=== PATIENT | female | born 1950 | race African-American/Black ===

== ENCOUNTER 2023-11-01 11:35 | Emergency (ER) | payer MEDICAID, MEDICARE, OTHER ==
[~2023-11-01] VITALS: Ht 165.1 cm; Wt 70.0 kg
[2023-11-01 11:38] VITALS: O2SAT 96
[2023-11-01 12:02] LABS: BASOPHILS % 0.4 % (0.0-2.0); EOSINOPHILS % 0.5 % (0.0-5.0); HEMATOCRIT. 40.6 % (36.0-48.0); HEMOGLOBIN. 13.1 g/dL (12.0-16.0); MEAN CORPUSCULAR HEMOGLOBIN 26.3 pg (28.0-32.0); MEAN CORPUSCULAR HGB CONC 32.2 g/dL (31.0-37.0); MEAN CORPUSCULAR VOLUME 81.7 fL (81.0-99.0); MEAN PLATELET VOLUME 7.7 fl (7.4-10.4); MONOCYTES % 5.2 % (2.0-8.0); NEUTROPHILS % 67.9 % (40.0-76.0); PLATELET 247 x1000/uL (130-400); RED BLOOD CELL COUNT 4.97 mill/uL (4.2-5.4); RED CELL DISTRIBUTION WIDTH 14.3 % (11.6-14.6); WHITE BLOOD COUNT 8.8 x1000/uL (4.5-11.0)
[2023-11-01 12:11] LABS: CARBON DIOXIDE 28 mEq/L (21-32); CHLORIDE 106 mEq/L (98-107); POTASSIUM 3.6 mEq/L (3.5-5.1); SODIUM 140 mEq/L (136-145)
[2023-11-01 12:12] LABS: CALCIUM 9.4 mg/dL (8.7-10.4)
[2023-11-01 12:16] LABS: CREATININE 0.9 mg/dL (0.6-1.0)
[2023-11-01 12:17] LABS: GLUCOSE 113 mg/dL (70-105); UREA NITROGEN BLOOD 14 mg/dL (9-23)
[2023-11-01 12:21] LABS: T4 FREE 1.18 ng/dL (0.89-1.76)
[2023-11-01 12:22] LABS: THYROID STIMULATING HORMONE 2.03 uIU/mL (0.55-4.78)
[2023-11-01 12:23] LABS: TROPONIN I HIGH SENSITIVITY < 4 ng/L (3.0-34)
[2023-11-01 12:24] LABS: PHOSPHORUS 3.7 mg/dL (2.5-4.9)
[2023-11-01] MEDS: SODIUM CHLORIDE 0.9% 1,000 ML IV ONE (12:41)
[2023-11-01 13:02] LABS: D-DIMER 0.59 mg/L FEU (<0.50); PARTIAL THROMBOPLASTIN TIME 28.6 sec (23.4-31.0); PROTHROMBIN TIME 10.9 sec (9.6-11.0)
[2023-11-01] MEDS: ASPIRIN 81MG TABLET PO ONE (14:51)
[2023-11-01] MEDS: MAGNESIUM 1 G PREMIX 100 ML IV ONE (15:07)
[2023-11-01] MEDS ORDERED: CEFTRIAXONE 1GM/50ML 50 ML IV ONE (15:45)
[2023-11-01 16:55] LABS: CLARITY URINE CLEAR (CLEAR); COLOR URINE YELLOW (YELLOW); GLUCOSE URINE NEGATIVE (NEGATIVE); KETONES URINE NEGATIVE (NEGATIVE); LEUKOCYTE ESTERASE URINE NEGATIVE (NEGATIVE); NITRITE URINE NEGATIVE (NEGATIVE); OCCULT BLOOD URINE TRACE (NEGATIVE); PH URINE 6.5 (4.5-8.0); PROTEIN URINE NEGATIVE (NEGATIVE); SPECIFIC GRAVITY URINE 1.064 (1.005-1.030); UROBILINOGEN URINE 0.2 E.U./dL (0.2-1.0)
[2023-11-01 17:10] LABS: BACTERIA URINE TRACE; RBC URINE 0-2 /hpf (0-2); SQUAMOUS EPITHELIAL CELL URINE RARE /lpf (RARE/1+); WBC URINE 0-2 /hpf (0-2)
[2023-11-01 17:14] VITALS: BP 138/52; PULSE 85; RESP 17; TEMP 36.83628; O2SAT 96
[2023-11-02] MEDS ORDERED: IOHEXOL-350 100 ML BOTTLE ONE (09:47)
== END 2023-11-01 17:40 | disposition short-term general hospital (02) ==
LOC: ER 11:35
DX: R00.2 Palpitations (principal); R07.9 Chest pain, unspecified; R26.81 Unsteadiness on feet; Z88.2 Allergy status to sulfonamides; Z91.040 Latex allergy status; Z98.890 Other specified postprocedural states
CPT/HCPCS: 99285; 71275; 96365; 71045; 96361; 80048; 81003; 83880; 84439; 83735; 84100; 84443; 85025; 85379; 85610; 85730; 87086; 84484; 36415; 70450; 93005; J0696; J3475; J7030

== ENCOUNTER 2024-12-16 12:51 | Emergency (ER) | payer OTHER ==
[~2024-12-16] VITALS: Ht 160 cm; Wt 80.0 kg
[2024-12-16 13:00] VITALS: BP 142/70; PULSE 80; RESP 16; TEMP 36.4; O2SAT 97
[2024-12-16 14:39] LABS: CLARITY URINE CLEAR (CLEAR); COLOR URINE YELLOW (YELLOW); GLUCOSE URINE NEGATIVE (NEGATIVE); KETONES URINE NEGATIVE (NEGATIVE); LEUKOCYTE ESTERASE URINE NEGATIVE (NEGATIVE); NITRITE URINE NEGATIVE (NEGATIVE); OCCULT BLOOD URINE 2+ (NEGATIVE); PH URINE 5.5 (4.5-8.0); PROTEIN URINE NEGATIVE (NEGATIVE); SPECIFIC GRAVITY URINE 1.021 (1.005-1.030); UROBILINOGEN URINE 0.2 E.U./dL (0.2-1.0)
[2024-12-16] MEDS ORDERED: TAMS-54 MT (14:48)
[2024-12-16] MEDS ORDERED: IBUP-1455 MT (14:48)
[2024-12-16 14:59] LABS: BASOPHILS % 0.3 % (0.0-2.0); EOSINOPHILS % 0.2 % (0.0-5.0); HEMATOCRIT. 40.2 % (36.0-48.0); HEMOGLOBIN. 13.1 g/dL (12.0-16.0); LYMPHOCYTES % 12.9 % (20.0-50.0); MEAN PLATELET VOLUME 7.6 fl (7.4-10.4); MONOCYTES % 4.0 % (2.0-8.0); NEUTROPHILS % 82.6 % (40.0-76.0); PLATELET 230 x1000/uL (130-400); RED BLOOD CELL COUNT 4.98 mill/uL (4.2-5.4); RED CELL DISTRIBUTION WIDTH 14.7 % (11.6-14.6)
[2024-12-16 15:14] LABS: SQUAMOUS EPITHELIAL CELL URINE FEW /lpf (RARE/1+)
[2024-12-16 15:15] LABS: BACTERIA URINE NONE SEEN; WBC URINE 0-2 /hpf (0-2)
[2024-12-16 15:16] LABS: CALCIUM OXALATE CRYSTALS URINE 1+ /lpf
[2024-12-16 15:22] LABS: CREATININE 0.9 mg/dL (0.6-1.0); UREA NITROGEN BLOOD 12 mg/dL (9-23)
[2024-12-16 15:24] LABS: ASPARTATE AMINOTRANSFERASE 20 IU/L (<34); BILIRUBIN DIRECT 0.2 mg/dL (<=3.0); BILIRUBIN TOTAL 0.7 mg/dL (0.1-1.0); PROTEIN TOTAL 7.1 g/dL (6.0-8.3)
== END 2024-12-16 15:08 | disposition home or self-care (01) ==
LOC: ER 12:51
DX: N20.0 Calculus of kidney (principal); I10 Essential (primary) hypertension; Z91.040 Latex allergy status; Z90.710 Acquired absence of both cervix and uterus; Z88.2 Allergy status to sulfonamides
CPT/HCPCS: 36415; 74176; 80048; 80076; 81003; 85025; 99284